=== PATIENT | female | born 1995 | race African-American/Black ===

== ENCOUNTER 2018-02-01 18:58 | Emergency (ER) | payer SELFPAY ==
[~2018-02-01] VITALS: Ht 170.2 cm; Wt 81.0 kg
[2018-02-01 20:21] LABS: HEMATOCRIT 35.8 % (36.0-46.0); HEMOGLOBIN 11.7 G/DL (11.9-15.5); MCH 25.6 PG (29.0-34.0); MCHC 32.7 G/DL (30.0-36.0); MCV 78.3 FL (83-99); PLATELET COUNT 359 K/uL (156-360); RBC DIS.WIDTH-CV 13.2 % (11.8-14.6); RBC DIS.WIDTH-SD 37.6 % (39-53); RED BLOOD COUNT 4.57 M/uL (3.80-5.20); WHITE BLOOD COUNT 7.6 K/uL (4.1-10.2)
[2018-02-01 20:28] LABS: ALBUMIN 4.4 g/dL (3.2-4.8)
[2018-02-01] MEDS ORDERED: ATARAX,VISTARIL50 MG PO (20:28)
[2018-02-01 20:29] LABS: CHLORIDE 106 mEq/L (99-109); POTASSIUM 4.2 mEq/L (3.7-5.4); SODIUM 136 mEq/L (136-147)
[2018-02-01 20:31] LABS: GLUCOSE 94 mg/dL (70-99)
[2018-02-01 20:33] LABS: TOTAL BILIRUBIN 0.3 mg/dL (0.0-1.0)
[2018-02-01 20:34] LABS: ALKALINE PHOSPHATASE 63 IU/L (3-129); SERUM ETHYL ALCOHOL < 10 mg/dL
[2018-02-01 20:35] LABS: CREATININE 0.7 mg/dL (0.6-1.3); GFR ESTIMATE (CALCULATED) > 59 mL/min/
[2018-02-01 20:36] LABS: AST (GOT) 18 IU/L (2-34); UREA NITROGEN (BUN) 10 mg/dL (9-23)
[2018-02-01 20:38] LABS: ACETAMINOPHEN (TYLENOL) < 10 mcg/mL (10-30); ALT (GPT) 10 IU/L (3-49)
[2018-02-01 20:43] LABS: QUANTITATIVE HCG 11495.7 MIU/ML
[2018-02-01 20:44] VITALS: BP 126/81
== END 2018-02-01 20:50 | disposition home or self-care (01) ==
LOC: EME 18:58
PROVIDERS: Nurse Practitioner Family
DX: F32.9 Major depressive disorder, single episode, unspecified (principal); G47.00 Insomnia, unspecified; F43.25 Adjustment disorder with mixed disturbance of emotions and conduct; F17.200 Nicotine dependence, unspecified, uncomplicated
CPT/HCPCS: 80053; 81003; 84702; 85027; 90839; 99281; 99284; G0480

== ENCOUNTER 2018-02-06 17:12 | Emergency (ER) | payer OTHER ==
[~2018-02-06] VITALS: Ht 170.2 cm; Wt 84.6 kg
[~2018-02-06 17:12] MED LIST: ATARAX,VISTARIL50 MG PO
[2018-02-06 20:01] VITALS: BP 118/87
== END 2018-02-06 20:02 | disposition home or self-care (01) ==
LOC: EME 17:12
DX: Z32.01 Encounter for pregnancy test, result positive (principal); O99.331 Smoking (tobacco) complicating pregnancy, first trimester; F17.200 Nicotine dependence, unspecified, uncomplicated; Z3A.01 Less than 8 weeks gestation of pregnancy
CPT/HCPCS: 84702; 99281; 99283

== ENCOUNTER 2018-02-10 21:29 | Emergency (ER) | payer OTHER ==
[~2018-02-10] VITALS: Ht 170.2 cm; Wt 86.1 kg
[2018-02-10 22:00] LABS: HEMATOCRIT 33.5 % (36.0-46.0); MCH 25.8 PG (29.0-34.0); MCHC 32.8 G/DL (30.0-36.0); MCV 78.6 FL (83-99); PLATELET COUNT 289 K/uL (156-360); RBC DIS.WIDTH-CV 13.2 % (11.8-14.6); RBC DIS.WIDTH-SD 37.4 % (39-53); RED BLOOD COUNT 4.26 M/uL (3.80-5.20); WHITE BLOOD COUNT 5.8 K/uL (4.1-10.2)
[2018-02-10 22:10] LABS: ALBUMIN 3.9 g/dL (3.2-4.8)
[2018-02-10 22:11] LABS: CHLORIDE 105 mEq/L (99-109); POTASSIUM 3.9 mEq/L (3.7-5.4); SODIUM 136 mEq/L (136-147)
[2018-02-10 22:13] LABS: GLUCOSE 84 mg/dL (70-99); TOTAL PROTEIN 7.2 g/dL (6.4-8.3)
[2018-02-10 22:13] LABS: APPEARANCE SL.HAZY ((CLEAR)); BILIRUBIN NEGATIVE; BLOOD NEGATIVE; COLOR YELLOW ((YELLOW)); GLUCOSE (STRIP) NEGATIVE; KETONES 5; LEUKOCYTES TRACE; NITRITE NEGATIVE; PROTEIN (STRIP) NEGATIVE; UROBILINOGEN 0.2 MG/DL (0.2-1.0)
[2018-02-10 22:15] LABS: TOTAL BILIRUBIN 0.2 mg/dL (0.0-1.0)
[2018-02-10 22:16] LABS: ALKALINE PHOSPHATASE 56 IU/L (3-129)
[2018-02-10 22:17] LABS: CREATININE 0.7 mg/dL (0.6-1.3); GFR ESTIMATE (CALCULATED) > 59 mL/min/
[2018-02-10 22:18] LABS: AST (GOT) 13 IU/L (2-34); UREA NITROGEN (BUN) 9 mg/dL (9-23)
[2018-02-10 22:20] LABS: ALT (GPT) 8 IU/L (3-49)
[2018-02-10 22:48] LABS: QUANTITATIVE HCG 64500.1 MIU/ML
[2018-02-10 22:48] LABS: BACTERIA 4+ /HPF; EPITHELIAL CELLS 4+ /HPF; MUCUS NONE SEEN /LPF; RED BLOOD CELLS 0-5 /HPF (0-5); UCUL ADDED? YES
[2018-02-10] MEDS ORDERED: KEFLEX500 MG PO (23:58)
[2018-02-11 00:03] LABS: SOURCE SWAB
[2018-02-11 00:14] VITALS: BP 122/77
== END 2018-02-11 00:15 | disposition home or self-care (01) ==
LOC: EME 21:29
PROVIDERS: Emergency Medicine
DX: O26.891 Other specified pregnancy related conditions, first trimester (principal); R82.71 Bacteriuria; R10.30 Lower abdominal pain, unspecified; Z3A.01 Less than 8 weeks gestation of pregnancy
CPT/HCPCS: 76801; 80053; 81003; 84702; 85027; 87086; 87210; 87491; 87591; 99281; 99283

== ENCOUNTER 2018-03-11 10:22 | Emergency (ER) | payer OTHER ==
[~2018-03-11] VITALS: Ht 170.2 cm; Wt 85.8 kg
[~2018-03-11 10:22] MED LIST changes: +KEFLEX500 MG PO
[2018-03-11 14:10] VITALS: BP 127/89
== END 2018-03-11 14:10 | disposition home or self-care (01) ==
LOC: EME 10:22
DX: O9A.211 Injury, poisoning and certain other consequences of external causes complicating pregnancy, first trimester (principal); S40.022A Contusion of left upper arm, initial encounter; Y00.XXXA Assault by blunt object, initial encounter; Y07.03 Male partner, perpetrator of maltreatment and neglect; Z3A.10 10 weeks gestation of pregnancy; O99.511 Diseases of the respiratory system complicating pregnancy, first trimester; J45.909 Unspecified asthma, uncomplicated
CPT/HCPCS: 73080; 99281; 99283